=== PATIENT | male | born 1955 | race Caucasian/White ===

== ENCOUNTER → 2023-11-02 10:27 | Outpatient (REF) | payer MEDICARE, SELFPAY ==
[2023-11-02 11:04] LABS: % Basophils 0.5 % (0-2); % Eosinophils 0.9 % (0-6); % Immature Granulocytes 0.2 % (0-0.5); % Lymphocytes 39.8 % (20.5-51.1); % Monocytes 6.6 % (1.7-9.3); Absolute Lymphocytes 1.7 10^3/uL (1.2-3.4); Absolute Monocytes 0.3 10^3/uL (0.1-0.6); Absolute Neutrophils 2.3 10^3/uL (1.4-6.5); Hematocrit 43.1 % (39.0-52.0); Hemoglobin 14.6 g/dL (13.0-18.0); Mean Corp Hgb Conc. 33.9 g/dL (33.0-37.0); Mean Corpuscular Hgb 31.6 pg (27.0-31.0); Mean Corpuscular Volume 93.3 fL (80.0-94.0); Mean Platelet Volume 8.3 fL (7.4-10.4); Nucleated Red Blood Cells % 0 % (-); Platelet Count 295 10^3/uL (130-400); Red Blood Cell Count 4.62 10^6/uL (4.70-6.10); Red Cell Dist. Width 13.2 % (11.5-14.5); White Blood Cell Count 4.4 10^3/uL (4.8-10.8)
[2023-11-02 11:24] LABS: ALT (SGPT) 20 U/L (0-50); AST (SGOT) 21 U/L (17-59); Albumin 4.6 g/dl (3.5-5.0); Alkaline Phosphatase 71 U/L (38-126); Blood Urea Nitrogen 19 mg/dl (9-20); Calcium 9.9 mg/dl (8.4-10.2); Carbon Dioxide 32 mmol/L (22-30); Chloride 103 mmol/L (98-107); Glucose 103 mg/dl (70-99); Iron 96 ug/dl (49-181); Potassium 4.6 mmol/L (3.5-5.1); Sodium 141 mmol/L (135-145); Total Bilirubin 0.4 mg/dl (0.2-1.3); Total Protein 7.4 g/dl (6.3-8.2); eGFR > 60.00
[2023-11-02 11:27] LABS: Troponin I < 0.012 ng/ml
[2023-11-02 11:33] LABS: Percent Saturation 27 % (20-50); Total Iron Binding Capacity 353 ug/dl (261-462)
[2023-11-02 11:42] LABS: Vitamin D, 25-OH*** 41.1 ng/mL (30-80)
[2023-11-02 11:56] LABS: TSH Reflex To Free T4 1.49 uIU/ml (0.47-4.68)
[2023-11-02 12:00] LABS: Ferritin 70.6 ng/ml (17.9-464.0)
[2023-11-02 12:15] LABS: Vitamin B12 565 pg/ml (239-931)
[2023-11-04 17:23] LABS: Mercury, Blood 5.5 ug/L (<=10.0)
== END ==
LOC: REG 10:27
PROVIDERS: ATTENDING PHYSICIAN Emergency Medicine; REFERRING PHYSICIAN Internal Medicine Cardiovascular Disease
DX: R07.89 Other chest pain (principal); Z77.018 Contact with and (suspected) exposure to other hazardous metals; R53.83 Other fatigue
CPT/HCPCS: 80053; 82306; 82607; 82728; 83036; 83540; 83550; 83825; 84443; 84484; 85025

== ENCOUNTER → 2023-11-21 | Outpatient (REF) | payer MEDICARE, SELFPAY | LOC: DHSLP | PROVIDERS: ATTENDING PHYSICIAN Internal Medicine Cardiovascular Disease; FAMILY PHYSICIAN Emergency Medicine | DX: G47.33 Obstructive sleep apnea (adult) (pediatric) (principal) | CPT/HCPCS: 95800 ==

== ENCOUNTER → 2024-01-26 13:06 | Outpatient (REF) | payer MEDICARE, SELFPAY | LOC: HWRAD 13:06 | PROVIDERS: ATTENDING PHYSICIAN Internal Medicine Critical Care Medicine; FAMILY PHYSICIAN Emergency Medicine | DX: R91.1 Solitary pulmonary nodule (principal) | CPT/HCPCS: 71250 ==

== ENCOUNTER 2024-02-14 08:55 | Outpatient (RCR) | payer MEDICARE, SELFPAY | END 2024-02-14 23:59 | disposition home or self-care (01) | LOC: RPT 08:55 | PROVIDERS: ATTENDING PHYSICIAN Nurse Practitioner Family; FAMILY PHYSICIAN Emergency Medicine | DX: M25.552 Pain in left hip (principal); M54.51 Vertebrogenic low back pain; Z73.6 Limitation of activities due to disability | CPT/HCPCS: 97110; 97112; 97162 ==

== ENCOUNTER → 2024-02-28 08:43 | Outpatient (REF) | payer MEDICARE, SELFPAY ==
[2024-02-28 09:54] LABS: HDL Cholesterol 66 mg/dl; LDL Cholesterol, Calculated 110 mg/dl; Total Cholesterol 203 mg/dl (50-199); Triglyceride 137 mg/dl (10-149); Very Low Density Lipoprotein 27 mg/dl (0-30)
[2024-02-28 10:12] LABS: Urine Albumin Negative (Neg - Trace); Urine Bilirubin Negative (Negative); Urine Character Clear (Clear); Urine Color Straw; Urine Glucose Negative (Negative); Urine Ketone Negative (Negative); Urine Leukocyte Negative (Negative); Urine Nitrite Negative (Negative); Urine Occult Blood Negative (Negative); Urine Specific Gravity 1.005 (<1.030); Urine Urobilinogen Negative (Neg - 1+)
[2024-02-28 11:19] LABS: PSA, Total - Screen 3.33 ng/ml (0.0-4.0)
[2024-03-02 10:14] LABS: Albumin 4.51 g/dL (3.75-5.01); Alpha 1 Globulin 0.26 g/dL (0.19-0.46); Alpha 2 Globulin 0.67 g/dL (0.48-1.05); SPEP IFE Reflex Not Done; Total Protein-Electrophoresis 7.1 g/dL (6.3-8.2)
== END ==
LOC: REG 08:43
PROVIDERS: ATTENDING PHYSICIAN Emergency Medicine
DX: Z00.00 Encounter for general adult medical examination without abnormal findings (principal); R53.83 Other fatigue; R79.89 Other specified abnormal findings of blood chemistry; R35.1 Nocturia; Z12.5 Encounter for screening for malignant neoplasm of prostate
CPT/HCPCS: 36415; 80061; 81003; 84155; 84165; 84403; G0103

== ENCOUNTER 2024-03-13 06:45 | Outpatient (RCR) | payer MEDICARE, SELFPAY | END 2024-03-13 23:59 | disposition home or self-care (01) | LOC: RPT 06:45 | PROVIDERS: ATTENDING PHYSICIAN Nurse Practitioner Family; FAMILY PHYSICIAN Emergency Medicine | DX: M25.552 Pain in left hip (principal); M54.51 Vertebrogenic low back pain; Z73.6 Limitation of activities due to disability; R26.2 Difficulty in walking, not elsewhere classified; M62.81 Muscle weakness (generalized) | CPT/HCPCS: 97110; 97112; 97140 ==

== ENCOUNTER 2024-03-27 10:50 | Outpatient (RCR) | payer MEDICARE, SELFPAY | END 2024-03-27 23:59 | disposition home or self-care (01) | LOC: RPT 10:50 | PROVIDERS: ATTENDING PHYSICIAN Nurse Practitioner Family; FAMILY PHYSICIAN Emergency Medicine | DX: M25.552 Pain in left hip (principal); M54.51 Vertebrogenic low back pain; Z73.6 Limitation of activities due to disability | CPT/HCPCS: 97110 ==

== ENCOUNTER → 2024-06-10 16:29 | Outpatient (REF) | payer MEDICARE, SELFPAY | LOC: RAD 16:29 | PROVIDERS: ATTENDING PHYSICIAN Nurse Practitioner Family | DX: R06.02 Shortness of breath (principal) | CPT/HCPCS: 71046 ==

== ENCOUNTER 2024-06-12 13:52 | Emergency (ER) | payer MEDICARE, SELFPAY ==
[2024-06-12 14:03] VITALS: BP 165/102
[2024-06-12 14:33] LABS: % Basophils 0.6 % (0-2); % Eosinophils 2.4 % (0-6); % Immature Granulocytes 0.1 % (0-0.5); % Monocytes 6.4 % (1.7-9.3); % Neutrophils 55.5 % (42.2-75.2); Absolute Eosinophils 0.2 10^3/uL (0-0.7); Absolute Lymphocytes 2.5 10^3/uL (1.2-3.4); Absolute Monocytes 0.5 10^3/uL (0.1-0.6); Absolute Neutrophils 3.9 10^3/uL (1.4-6.5); Hematocrit 40.8 % (39.0-52.0); Hemoglobin 13.8 g/dL (13.0-18.0); Mean Corp Hgb Conc. 33.8 g/dL (33.0-37.0); Mean Corpuscular Hgb 31.7 pg (27.0-31.0); Mean Corpuscular Volume 93.6 fL (80.0-94.0); Mean Platelet Volume 8.4 fL (7.4-10.4); Nucleated Red Blood Cells % 0 % (-); Platelet Count 272 10^3/uL (130-400); Red Blood Cell Count 4.36 10^6/uL (4.70-6.10); Red Cell Dist. Width 12.9 % (11.5-14.5)
[2024-06-12 14:43] LABS: ALT (SGPT) 22 U/L (0-50); AST (SGOT) 21 U/L (17-59); Albumin 4.7 g/dl (3.5-5.0); Alkaline Phosphatase 53 U/L (38-126); Blood Urea Nitrogen 21 mg/dl (9-20); Calcium 9.1 mg/dl (8.4-10.2); Carbon Dioxide 28 mmol/L (22-30); Chloride 102 mmol/L (98-107); Glucose 126 mg/dl (70-99); Sodium 139 mmol/L (135-145); Total Bilirubin 0.4 mg/dl (0.2-1.3); Total Protein 7.1 g/dl (6.3-8.2); eGFR > 60.00
[2024-06-12 14:54] LABS: Troponin I < 0.012 ng/ml
--- NOTE | 2024-06-12 16:18 | ED.GENMED ---
History of Present Illness
General
Chief Complaint: Cardiac Symptoms
Source: patient
Exam Limitations: none
Time Seen by Provider: 06/12/24 16:01
History of Present Illness
History of Present Illness:
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 He feels short of breath associated with this. There is a sharp type of pain. The pain is pleuritic in
nature. Did not made worse with motion. He has not missed any doses of of his Eliquis. He follows with cardiology here. He saw his family doctor earlier this week secondary to a cough and an x-ray was performed earlier which was negative. He
also started Zithromax to cover for his cough. No fevers. No leg swelling or calf pain.
Past History
Past History
ED Past Medical History: None and Arrthythmia; Negative Asthma, HTN, Hypercholesterolemia or NIDDM
ED Past Surgical History: Orthopedic and Other (hernia)
Social History
Tobacco: Non-smoker
Alcohol: Occasional
Drug: None
Personal:
Living: with family
Employment: Employed
Family History
Family History: Other (n/c)
Phy Exam
Physical Exam
Physical Exam:
General: Well-appearing male no acute respiratory distress
HEENT: Normocephalic atraumatic
Heart: Regular rate and rhythm no murmurs
Lungs: Clear no wheeze
Abd: Soft, nontender
Ext: no cyanosis or edema
Skin: Warm, no rash
Course
Orders/Labs/Results
Orders:
Orders
06/12/24 13:53
Electrocardiogram (*1) Urgent
Reason for Study: Shortness of Breath
EKG- Treatment ONCE
06/12/24 14:15
Complete Blood Count/With Diff Urgent
Comprehensive Metabolic Panel Urgent
Troponin I Urgent
06/12/24 16:13
CT Chest Angio W/wo Iv Contras Urgent
Comment:
Reason For Exam: chest, left scapular and arm pain
Abnormal Lab Results
06/12/24
14:15
RBC 4.36 L 10^6/uL
(4.70-6.10)
MCH 31.7 H pg
(27.0-31.0)
BUN 21 H mg/dl
(9-20)
Glucose 126 H mg/dl
(70-99)
06/12/24 14:15
06/12/24 14:15
Vital Signs
Initial and Last Documented VS:
Initial Vital Signs
Temp Pulse Resp BP Pulse Ox
98 F 83 18 165/102 98
06/12/24 14:03 06/12/24 14:03 06/12/24 14:03 06/12/24 14:03 06/12/24 14:03
Last Documented Vital Signs
Temp Pulse Resp BP Pulse Ox
98 F 74 12 132/84 96
06/12/24 14:03 06/12/24 19:00 06/12/24 19:00 06/12/24 19:00 06/12/24 19:00
MDM/Problems Addressed
Differential Diagnosis Includes:
Chest pain scapular pain left arm pain. Consider ACS. Unlikely to be PE secondary to anticoagulated state. He is somewhat hypertensive here also can consider dissection. If all this negative consider musculoskeletal type of pain. The symptoms
have been ongoing for several days. Initial troponin is undetectable. EKG shows sinus rhythm. No evidence of atrial fibrillation at this time.
*Critical Care Note
Total Time (30-74mins, 75-104mins- exclusive of procedures): Not Applicable
Update Note
Update Note:
CT angio of the chest negative for dissection. Vital signs remained stable. Hearing appears nontoxic upon assessment. Question possible musculoskeletal discomfort no radicular pain. Nonetheless given his history will be back to cardiology for
follow-up. Return precautions were given
ED Attending Note
-
Portions of this chart may have been created with voice recognition software.� Occasional wrong word or��sound alike� substitutions may have occurred due to the inherent limitations of voice recognition software.
Discharge Plan
Departure
Patient Disposition: Home (Routine Discharge)
Date of Disposition: 06/12/24
Time of Disposition: 19:25
Patient with high blood pressure during this ER visit?: No
Discharge Problem:
Chest pain
Instructions: Chest Pain DCA Follow Up
Prescriptions:
No Action
multivitamin Tablet
1 tab PO DAILY
calcium carbonate-vitamin D3 600 mg-5 mcg (200 unit) Tablet
4 tab PO DAILY
ascorbic acid (vitamin C) [Vitamin C] 500 mg Tablet
1,500 mg PO DAILY
electrolytes, oral Packet
1 packet PO DAILY
vitamin E 400 unit Tablet
400 mg PO DAILY
ibuprofen [Advil] 200 mg Tablet
200 mg PO Q6H PRN (Reason: pain)
coenzyme Q10 [CoQ-10] 100 mg Capsule
200 mg PO DAILY
melatonin 10 mg Tablet
80 - 100 mg PO HS PRN (Reason: Insomnia)
vitamin B complex Tablet Extended Release
3 tab PO DAILY
zinc 50 mg Tablet
50 mg PO DAILY
MCT Oil 14 gram-120 kcal/15 mL Oil
15 ml PO DAILY
quercetin 500 mg Capsule
1,000 mg PO DAILY
Collagen Peptides
10 mg PO DAILY
Eliquis 5 mg tablet
5 mg PO BID Qty: 60 6RF
Referrals:
Dulce Acosta CRNP [Family Provider] -
Activity Restrictions/Additional Instructions:
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
Interventions
Interventions:
*Risk Screen - Suicide Last Done: 06/12/24 16:24
*General Assessment Last Done: 06/12/24 16:24
*Neglect/Abuse Screening Last Done: 06/12/24 16:24
ED- Fall Risk Assessment Last Done: 06/12/24 16:24
*ED COVID-19 Vaccine History Last Done: 06/12/24 16:24
ED- Pulmonary Assessment Last Done: 06/12/24 16:24
ED- Cardiac Assessment Last Done: 06/12/24 16:24
Discharge Date and Time
Print Language: LATVIAN
[2024-06-12 17:00] VITALS: BP 134/80
[2024-06-12 18:57] VITALS: BP 138/78
[2024-06-12 19:00] VITALS: BP 132/84
== END 2024-06-12 19:42 | disposition home or self-care (01) ==
LOC: EMR 13:52
PROVIDERS: Emergency Medicine; EMERGENCY PHYSICIAN Emergency Medicine; FAMILY PHYSICIAN Nurse Practitioner Family
DX: R07.89 Other chest pain (principal); I48.91 Unspecified atrial fibrillation; I25.10 Atherosclerotic heart disease of native coronary artery without angina pectoris; Z79.01 Long term (current) use of anticoagulants
CPT/HCPCS: 99284; 71275; 80053; 84484; 85025; 93005; Q9967

== ENCOUNTER → 2024-07-26 08:20 | Outpatient (REF) | payer MEDICARE, SELFPAY ==
[2024-07-26 10:08] LABS: ALT (SGPT) 14 U/L (0-50); AST (SGOT) 19 U/L (17-59); Albumin 4.8 g/dl (3.5-5.0); Alkaline Phosphatase 59 U/L (38-126); Direct Bilirubin 0.3 mg/dl (0.0-0.4); HDL Cholesterol 64 mg/dl; LDL Cholesterol, Calculated 107 mg/dl; Total Cholesterol 189 mg/dl (50-199); Triglyceride 90 mg/dl (10-149); Very Low Density Lipoprotein 18 mg/dl (0-30)
== END ==
LOC: REG 08:20
PROVIDERS: ATTENDING PHYSICIAN Internal Medicine Cardiovascular Disease; FAMILY PHYSICIAN Emergency Medicine
DX: I48.0 Paroxysmal atrial fibrillation (principal); E78.5 Hyperlipidemia, unspecified
CPT/HCPCS: 36415; 80061; 80076

== ENCOUNTER → 2024-10-11 09:28 | Outpatient (REF) | payer MEDICARE, SELFPAY | LOC: RAD 09:28 | PROVIDERS: ATTENDING PHYSICIAN Emergency Medicine | DX: M25.552 Pain in left hip (principal) | CPT/HCPCS: 73502 ==

== ENCOUNTER → 2024-10-23 07:31 | Outpatient (REF) | payer MEDICARE, SELFPAY ==
[2024-10-23 08:40] LABS: ALT (SGPT) 19 U/L (0-50); AST (SGOT) 20 U/L (17-59); Albumin 4.8 g/dl (3.5-5.0); Alkaline Phosphatase 52 U/L (38-126); Direct Bilirubin 0.2 mg/dl (0.0-0.4); HDL Cholesterol 66 mg/dl; LDL Cholesterol, Calculated 44 mg/dl; Total Bilirubin 0.9 mg/dl (0.2-1.3); Total Cholesterol 131 mg/dl (50-199); Total Protein 6.9 g/dl (6.3-8.2); Triglyceride 105 mg/dl (10-149); Very Low Density Lipoprotein 21 mg/dl (0-30)
== END ==
LOC: REG 07:31
PROVIDERS: ATTENDING PHYSICIAN Internal Medicine Cardiovascular Disease; FAMILY PHYSICIAN Emergency Medicine
DX: E78.5 Hyperlipidemia, unspecified (principal)
CPT/HCPCS: 36415; 80061; 80076

== ENCOUNTER → 2024-11-01 07:51 | Outpatient (REF) | payer MEDICARE, SELFPAY ==
[2024-11-01 08:25] LABS: % Basophils 0.5 % (0-2); % Eosinophils 2.1 % (0-6); % Immature Granulocytes 0.2 % (0-0.5); % Lymphocytes 37.5 % (20.5-51.1); % Monocytes 7.8 % (1.7-9.3); % Neutrophils 51.9 % (42.2-75.2); Absolute Eosinophils 0.1 10^3/uL (0-0.7); Absolute Lymphocytes 1.6 10^3/uL (1.2-3.4); Absolute Monocytes 0.3 10^3/uL (0.1-0.6); Absolute Neutrophils 2.3 10^3/uL (1.4-6.5); Hematocrit 42.1 % (39.0-52.0); Hemoglobin 14.2 g/dL (13.0-18.0); Mean Corp Hgb Conc. 33.7 g/dL (33.0-37.0); Mean Corpuscular Hgb 32.4 pg (27.0-31.0); Mean Corpuscular Volume 96.1 fL (80.0-94.0); Mean Platelet Volume 8.7 fL (7.4-10.4); Nucleated Red Blood Cells % 0 % (-); Platelet Count 244 10^3/uL (130-400); Red Blood Cell Count 4.38 10^6/uL (4.70-6.10); Red Cell Dist. Width 12.9 % (11.5-14.5); White Blood Cell Count 4.4 10^3/uL (4.8-10.8)
[2024-11-01 08:55] LABS: Blood Urea Nitrogen 22 mg/dl (9-20); Calcium 9.4 mg/dl (8.4-10.2); Carbon Dioxide 30 mmol/L (22-30); Chloride 106 mmol/L (98-107); Glucose 102 mg/dl (70-99); Potassium 5.2 mmol/L (3.5-5.1); Sodium 143 mmol/L (135-145)
[2024-11-01 09:08] LABS: eGFR 53.74
[2024-11-01 09:13] LABS: Vitamin D, 25-OH*** 49.2 ng/mL (30-80)
[2024-11-01 09:26] LABS: TSH Reflex To Free T4 1.45 uIU/ml (0.47-4.68)
[2024-11-01 09:31] LABS: Ferritin 49.9 ng/ml (17.9-464.0)
[2024-11-01 09:46] LABS: Vitamin B12 490 pg/ml (239-931)
[2024-11-01 10:22] LABS: Glycohemoglobin (HgbA1c) 5.9 % (4.0-5.6)
[2024-11-03 23:50] LABS: Mercury, Blood 13.4 ug/L (<=10.0)
== END ==
LOC: REG 07:51
PROVIDERS: ATTENDING PHYSICIAN Emergency Medicine
DX: R53.83 Other fatigue (principal); E66.3 Overweight; Z77.018 Contact with and (suspected) exposure to other hazardous metals; R73.03 Prediabetes
CPT/HCPCS: 36415; 80048; 82306; 82607; 82728; 83036; 83825; 84443; 85025; 86618

== ENCOUNTER → 2025-04-04 09:05 | Outpatient (REF) | payer MEDICARE, SELFPAY ==
[2025-04-04 10:06] LABS: Hematocrit 42.5 % (39.0-52.0); Hemoglobin 14.0 g/dL (13.0-18.0); Mean Corp Hgb Conc. 32.9 g/dL (33.0-37.0); Mean Corpuscular Volume 99.1 fL (80.0-94.0); Nucleated Red Blood Cells % 0 % (-); Platelet Count 279 10^3/uL (130-400); Red Cell Dist. Width 12.9 % (11.5-14.5)
[2025-04-04 10:23] LABS: ALT (SGPT) 20 U/L (0-50); AST (SGOT) 19 U/L (17-59); Albumin 4.2 g/dl (3.5-5.0); Alkaline Phosphatase 52 U/L (38-126); Blood Urea Nitrogen 25 mg/dl (9-20); Calcium 9.4 mg/dl (8.4-10.2); Carbon Dioxide 31 mmol/L (22-30); Chloride 103 mmol/L (98-107); Glucose 91 mg/dl (70-99); Potassium 4.3 mmol/L (3.5-5.1); Sodium 139 mmol/L (135-145); Total Protein 6.8 g/dl (6.3-8.2); eGFR > 60.00
[2025-04-04 10:45] LABS: D-Dimer < 0.27 ug/mlFEU (0.00-0.50)
== END ==
LOC: REG 09:05
PROVIDERS: ATTENDING PHYSICIAN Internal Medicine Cardiovascular Disease
DX: I48.0 Paroxysmal atrial fibrillation (principal)
CPT/HCPCS: 36415; 80053; 83880; 85025; 85379